=== PATIENT | female | born 1965 | race Asian ===

== ENCOUNTER 2016-12-03 12:38 | Inpatient (IN) | payer OTHER ==
[2016-12-03] MEDS ORDERED: NS 1,000 ML IV ONE (13:25)
[2016-12-03] MEDS ORDERED: VANCOMYCIN HCL/NORMAL SALINE 250 ML IV ONE (13:25)
--- NOTE | 2016-12-03 13:35 | EDPHY ---
H & P Time Seen by Provider: 12/03/16 12:55 HPI/ROS: HPI Left ankle burning and swelling. 51-year-old female by private vehicle with her . They are traveling from [place] visiting their son here. They have been here 1 month. They will travel back to [place] in another month. The patient presents with 5-7 days of worsening swelling, redness, pain, inflammation/irritation with itching to the soft tissues involving her left ankle. She denies any history of trauma. She had a fracture dislocation repair of the left ankle about 20 years ago. She denies fever. She reports she has had scratchiness irritation to the medial aspect of the left ankle on and off over the years. But nothing as bad as this. ROS: Constitutional: No fever, no chills. No weakness. Eyes: No discharge. No changes in vision. ENT: No sore throat. No nasal congestion or rhinorrhea. Respiratory: No cough. No shortness of breath. Cardiac: No chest pain, no palpitations. Gastrointestinal: No abdominal pain, no vomiting, no diarrhea. Genitourinary: No hematuria. No dysuria or increased frequency with urination. Musculoskeletal: No back pain. No neck pain. No myalgias or arthralgias. As above. No other extremity pain. Skin: As above. Neurological: No headache. No focal weakness or altered sensation. Past medical history: Past medical history includes hypertension. Primary care is in [place]. Social history: Here with her . As above. Nonsmoker. No alcohol. Physical Exam: General Appearance: Alert, no distress. This patient is responding to questions appropriately and in full sentences. This patient appears well- hydrated and well-nourished. Eyes: Pupils equal and round no pallor or injection. No lid edema, erythema or injection. Left ankle exam: Significant for venous stasis dermatitis involving the medial soft tissues of the left ankle with skin breakdown and inflammatory changes. There is a significant erythema that spreads proximal to this up to the mid leg mostly involving the medial aspect of the leg. The left ankle and leg are swollen asymmetrically relative to the right ankle and leg. She has good capillary refill in all digits of the left foot. A strong dorsalis pedis pulse is noted. There is no pain involving the joint on axial compression of the ankle or flexion extension of the ankle. The left foot is neurovascularly intact. Neurological: Motor sensory function is grossly intact. Cranial nerves are normal. Gait is normal. Skin: Warm and dry, no rashes. Musculoskeletal: Neck is supple and nontender. Extremities are symmetrical. All joints range without pain or impingement. Psychiatric: No agitation. No depression. Database: EKG: Imaging: Left ankle x-ray series: No evidence of acute fracture, subluxation, dislocation. No evidence of osteomyelitis. Significant soft tissue swelling involving the medial aspect of the joint. Osteoarthritis noted. Interpreted by me. Left lower extremity Doppler ultrasound: No DVT. Reactive nodes in groin noted. Results were discussed with staff radiologist Dr. Qamar Nunez. Procedures: Emergency department course: IV placed. She was placed on a monitor. Blood cultures were drawn. She was started on IV normal saline with 500 cc to 1 L to be given over the next 1-2 hours. She will be started on IV vancomycin in the emergency department for likely cellulitis of the left ankle soft tissues with associated venous stasis dermatitis. 2:30 p.m., patient re-evaluated. Resting comfortably at this time. Results of x-rays, ultrasound and blood work discussed with the patient and her . Plan for admission for IV antibiotics and further management by the hospitalist service discussed. Blood sugar noted to be 200. She denies prior history of diabetes. They both endorse plan for admission. 2:35 p.m., spoke with on-call hospitalist. Patient accepted for admission to Dr. Yunior Diaz. The patient's remaining emergency department course under my care uneventful. Patient admitted in stable condition. Differential Diagnosis: The differential diagnosis on this patient includes but is not limited to cellulitis of the left ankle, venous stasis dermatitis of the left ankle. Fracture, subluxation, dislocation, osteomyelitis, gouty arthritis, septic arthritis, pseudogout unlikely. This represents a partial list of diagnoses considered. These considerations are based on history, physical exam, past history, reassessment and diagnostic testing. Smoking Status: Never smoked Constitutional: Initial Vital Signs Temperature (C) 37.1 C 12/03/16 12:43 Heart Rate 74 12/03/16 12:43 Respiratory Rate 18 12/03/16 12:43 Blood Pressure 154/77 H 12/03/16 12:43 O2 Sat (%) 95 12/03/16 12:43 O2 Delivery Mode Room Air Allergies/Adverse Reactions: No Known Allergies Allergy (Unverified 12/03/16 12:45) Home Medications: Medication Instructions Recorded Atenolol 12/03/16 Telmisartan 12/03/16 Medical Decision Making - Diagnostics Imaging Results: Imaging Impressions Ankle X-Ray 12/03/16 12:57 Impression: Addison soft tissue swelling. Extremity Venous Study 12/03/16 13:27 Impression: 1. No deep venous thrombosis in the left lower extremity. 2. Reactive nodes left inguinal region. Findings discussed with Jeanette Bowen MD at 14:22 hour, 12/03/2016. - Data Points Laboratory Results: Laboratory Results 12/03/16 13:44 12/03/16 13:44 12/03/16 12/03/16 13:44 13:44 WBC 7.37 10^3/uL 10^3/uL (3.80-9.50) RBC 4.42 10^6/uL 10^6/uL (4.18-5.33) Hgb 12.8 g/dL g/dL (12.6-16.3) Hct 38.6 % % (38.0-47.0) MCV 87.3 fL fL (81.5-99.8) MCH 29.0 pg pg (27.9-34.1) MCHC 33.2 g/dL g/dL (32.4-36.7) RDW 13.1 % % (11.5-15.2) Plt Count 232 10^3/uL 10^3/uL (150-400) MPV 11.0 fL fL (8.7-11.7) Neut % (Auto) 67.1 % % (39.3-74.2) Lymph % (Auto) 22.1 % % (15.0-45.0) Crook % (Auto) 6.4 % % (4.5-13.0) Eos % (Auto) 3.4 % % (0.6-7.6) Baso % (Auto) 0.7 % % (0.3-1.7) Nucleat RBC Rel Count 0.0 % % (0.0-0.2) Absolute Neuts (auto) 4.95 10^3/uL 10^3/uL (1.70-6.50) Absolute Lymphs (auto) 1.63 10^3/uL 10^3/uL (1.00-3.00) Absolute Monos (auto) 0.47 10^3/uL 10^3/uL (0.30-0.80) Absolute Eos (auto) 0.25 10^3/uL 10^3/uL (0.03-0.40) Absolute Basos (auto) 0.05 10^3/uL 10^3/uL (0.02-0.10) Absolute Nucleated RBC 0.00 10^3/uL 10^3/uL (0-0.01) Immature Gran % 0.3 % % (0.0-1.1) Immature Gran # 0.02 10^3/uL 10^3/uL (0.00-0.10) ESR Pending Sodium 139 mEq/L mEq/L (134-144) Potassium 4.0 mEq/L mEq/L (3.5-5.2) Chloride 101 mEq/L mEq/L (97-110) Carbon Dioxide 27 mEq/l mEq/l (22-31) Anion Gap 11 mEq/L mEq/L (8-16) BUN 10 mg/dL mg/dL (7-23) Creatinine 0.7 mg/dL mg/dL (0.6-1.0) Estimated GFR > 60 Glucose 200 mg/dL H mg/dL (70-100) Calcium 9.9 mg/dL mg/dL (8.5-10.4) C-Reactive Protein < 5.0 mg/L mg/L (<10.0) Medications Given: Discontinued Medications Sodium Chloride (Ns) 1,000 mls @ 0 mls/hr IV ONCE ONE; Wide Open PRN Reason: Protocol Stop: 12/03/16 13:26 Last Admin: 12/03/16 14:21 Dose: 1,000 mls Vancomycin/Sodium Chloride (Vancomycin 1 Gm (Premix)) 250 mls @ 250 mls/hr IV EDNOW ONE PRN Reason: Protocol Stop: 12/03/16 14:24 Last Admin: 12/03/16 14:20 Dose: 250 mls Departure - Departure Disposition: [facility] Inpatient Acute Clinical Impression: Cellulitis of left ankle, Venous stasis dermatitis left ankle Referrals: NONE *PRIMARY CARE P,. [Primary Care Provider] - As per Instructions
[2016-12-03 13:57] LABS: % IMMATURE GRANULYOCYTES 0.3 % (0.0-1.1); ABSOLUTE IMMATURE GRANULOCYTES 0.02 10^3/uL (0.00-0.10); ADD DIFF? NO; ADD MORPH? NO; ADD SCAN? NO; ATYPICAL LYMPHOCYTE FLAG 10 (0-99); FRAGMENT RBC FLAG 0 (0-99); HEMATOCRIT 38.6 % (38.0-47.0); HEMOGLOBIN 12.8 g/dL (12.6-16.3); LEFT SHIFT FLG 0 (0-99); LIPEMIA HEMOLYSIS FLAG 80 (0-99); MEAN CELL HEMOGLOBIN CONCENTR. 33.2 g/dL (32.4-36.7); MEAN CELL VOLUME 87.3 fL (81.5-99.8); PLATELET CLUMPS FLAG 10 (0-99); PLATELET COUNT 232 10^3/uL (150-400); RED BLOOD CELL COUNT 4.42 10^6/uL (4.18-5.33); RED CELL DISTRIBUTION WIDTH 13.1 % (11.5-15.2)
[2016-12-03 14:18] LABS: ANION GAP 11 mEq/L (8-16); C-REACTIVE PROTEIN < 5.0 mg/L (<10.0); CALCIUM 9.9 mg/dL (8.5-10.4); CARBON DIOXIDE 27 mEq/l (22-31); CHLORIDE 101 mEq/L (97-110); CREATININE 0.7 mg/dL (0.6-1.0); GLOMERULAR FILTRATION RATE > 60; GLUCOSE 200 mg/dL (70-100); SODIUM 139 mEq/L (134-144)
[2016-12-03 14:41] LABS: SEDIMENTATION RATE 30 MM/HR (0-30)
[2016-12-03] MEDS ORDERED: ONDANSETRON DISINTEGRATING 4 MG TAB PO PRN (14:53)
[2016-12-03] MEDS ORDERED: ACETAMINOPHEN 325 MG TAB PO PRN (14:53)
--- NOTE | 2016-12-03 15:28 | GHP ---
[f rep st] HISTORY AND PHYSICAL DATE OF ADMISSION: 12/03/2016 CHIEF COMPLAINT: Left ankle pain. HISTORY OF PRESENT ILLNESS: This is a 51-year-old female with a history of a left ankle fracture and dislocation, who presents with left ankle pain. This started about a week ago, described as burning, but not terribly painful, she is able to move her ankle, it shows that the redn ess has progressed over the past few days. It has also become more swollen. She has not had any fev ers at home. She has a history of a left ankle fracture and dislocation. She has had issues like this in the past . She has used different creams to treat this in the past in [place], which include a mometasone cream , a fluoroquinolone cream, as well as she has taken Misa allergy pills. She says that this is the worst that it has ever been however. She has never had an infection with resistant bacteria. She h as never been told that she has gout or has any other joint inflammation. PAST MEDICAL/SURGICAL HISTORY: 1. Hypertension. 2. Left ankle fracture and dislocation. MEDICATIONS: Please see medication reconciliation. ALLERGIES: No known drug allergies. FAMILY HISTORY: Her parents had hypertension. SOCIAL HISTORY: She lives near [facility], she is visiting family here. She is going to go to [place], [place] in about 1 week. REVIEW OF SYSTEMS: A 10-point review of systems is conducted and is negative except per HPI. PHYSICAL EXAM: VITAL SIGNS: Blood pressure is 154/77, heart rate 74, respiration rate 18, saturatin g 95% on room air, temperature is 37.1. GENERAL: The patient is a very pleasant female, who is rest ing comfortably, in no acute distress. HEENT: Shows her to be normocephalic, atraumatic. CARDIOVAS CULAR: Shows regular rate and rhythm. No murmurs, rubs, or gallops. PULMONARY: Shows Lungs clear to auscultation bilaterally. ABDOMEN: Soft, nontender, nondistended. SKIN: No rash. : Shows n o [place]. NEUROLOGIC: Shows her to be alert and oriented x3. She is moving all extremities. PSYCHI ATRIC: Shows normal mood and affect. EXTREMITIES: Shows her left ankle to have significant erythem a extending to the mid medial calf. It is warm. It is not terribly painful, but it is quite [place] us. She has good range of motion in her ankle. She has what appears to be chronic venous stasis adri nges in that ankle as well. She has no inguinal lymphadenopathy. She does have in her bilateral med ial thighs, have a follicular type rash. LABS: White count is normal. ESR is 30, glucose is 200, CRP is 50, creatinine is 0.7. DATA: 1. I discussed this with Dr. Bowen. We will admit to med/surg. 2. I reviewed her extremity venous study. This shows no deep vein thrombosis, it does show some lana ctive lymph nodes in the left inguinal region. 3. Ankle x-ray shows bland soft tissue swelling. IMPRESSION AND PLAN: A 51-year-old female with left ankle inflammation. 1. Left ankle inflammation: Agree, this is likely cellulitis. I do consider gout as well. It is o dd that her inflammatory markers are normal, and she has a normal white count. I will send procalcit onin, as well as uric acid. I think empirically treating now for cellulitis is appropriate. She smith s not have any risk factors for MRSA, I will change her antibiotics to Ancef. 2. Hypertension: Continue her antihypertensives. 3. Hyperglycemia: She should follow up with her primary care physician in [place]. /[id number]/MODL
[2016-12-03 16:25] LABS: URIC ACID 7.6 mg/dL (2.5-6.8)
[2016-12-03] MEDS: MOMETASONE FUROATE 15 GM CRTUBE TP SCH (16:55)
[2016-12-03 18:21] LABS: PROCALCITONIN 0.03 ng/mL (0.02-0.10)
[2016-12-03] MEDS: CALCIUM CARB W/VIT D 500 MG TAB PO SCH (20:23)
[2016-12-03] MEDS: oxyCODONE IR 5 MG TAB PO PRN (20:23)
[2016-12-03] MEDS: ATENOLOL 25 MG TAB PO SCH (20:23)
[2016-12-04] MEDS: oxyCODONE IR 5 MG TAB PO PRN (00:06)
[2016-12-04 05:00] LABS: % IMMATURE GRANULYOCYTES 0.3 % (0.0-1.1); ABSOLUTE IMMATURE GRANULOCYTES 0.02 10^3/uL (0.00-0.10); ADD DIFF? NO; ADD MORPH? NO; ADD SCAN? NO; ATYPICAL LYMPHOCYTE FLAG 10 (0-99); FRAGMENT RBC FLAG 0 (0-99); HEMATOCRIT 37.1 % (38.0-47.0); HEMOGLOBIN 12.1 g/dL (12.6-16.3); LEFT SHIFT FLG 0 (0-99); LIPEMIA HEMOLYSIS FLAG 80 (0-99); MEAN CELL HEMOGLOBIN 28.9 pg (27.9-34.1); MEAN CELL HEMOGLOBIN CONCENTR. 32.6 g/dL (32.4-36.7); MEAN CELL VOLUME 88.5 fL (81.5-99.8); MEAN PLATELET VOLUME 11.8 fL (8.7-11.7); PLATELET CLUMPS FLAG 0 (0-99); PLATELET COUNT 227 10^3/uL (150-400); RED BLOOD CELL COUNT 4.19 10^6/uL (4.18-5.33); RED CELL DISTRIBUTION WIDTH 13.2 % (11.5-15.2)
[2016-12-04 05:14] LABS: ANION GAP 12 mEq/L (8-16); CALCIUM 9.7 mg/dL (8.5-10.4); CARBON DIOXIDE 25 mEq/l (22-31); CHLORIDE 102 mEq/L (97-110); CREATININE 0.6 mg/dL (0.6-1.0); GLOMERULAR FILTRATION RATE > 60; GLUCOSE 137 mg/dL (70-100); POTASSIUM 4.1 mEq/L (3.5-5.2); SODIUM 139 mEq/L (134-144)
[2016-12-04] MEDS ORDERED: TELMISARTAN PO SCH (09:00)
[2016-12-04] MEDS ORDERED: HYDROCHLOROTHIAZID PO SCH (09:00)
[2016-12-04] MEDS: CALCIUM CARB W/VIT D 500 MG TAB PO SCH ×2 (09:06→21:01)
[2016-12-04] MEDS: ATENOLOL 25 MG TAB PO SCH ×2 (09:06→21:00)
[2016-12-04] MEDS: MOMETASONE FUROATE 15 GM CRTUBE TP SCH (09:09)
[2016-12-04] MEDS ORDERED: TELMISARTAN 40 MG TAB PO SCH (11:00)
[2016-12-04] MEDS: TELMISARTAN 40 MG TAB PO SCH (12:22)
[2016-12-04] MEDS: HYDROCHLOROTHIAZIDE 12.5 MG CAP PO SCH (12:22)
--- NOTE | 2016-12-04 13:36 | HOSPPROG ---
Hospitalist Progress Note Assessment/Plan: 51y old female with ankle reddness. First encounter, chart reviewed. #L ankle cellulitis cont IV abx over night wound care transition to PO abx when ready #HTN stable #Hyperglycemia acute #Dispo change to inpt. requires cont IV abx wound care Subjective: Up eating breakfast. Feeling a bit better. No pain. Objective: Vital Signs Temp Pulse Resp BP Pulse Ox 36.6 C 64 18 133/64 H 97 12/04/16 11:07 12/04/16 11:07 12/04/16 11:07 12/04/16 11:07 12/04/16 11:07 Laboratory Results 12/04/16 04:20 12/04/16 04:20 12/03/16 12/04/16 12/05/16 05:59 05:59 05:59 Intake Total 1600 Balance 1600 - Physical Exam Constitutional: no apparent distress, appears nourished, not in pain Eyes: PERRL, anicteric sclera, EOMI Ears, Nose, Mouth, Throat: moist mucous membranes, hearing normal, ears appear normal Cardiovascular: regular rate and rhythym, No JVD, No edema Respiratory: no respiratory distress, no rales or rhonchi, reduced air movement Gastrointestinal: normoactive bowel sounds, No tenderness, No ascites Skin: warm, erythema, No induration Musculoskeletal: full muscle strength, no joint effusions, generalized weakness Neurologic: AAOx3 Psychiatric: interacting appropriately, not anxious, not encephalopathic, thought process linear ICD10 Worksheet Patient Problems: Problems Problem Status Onset Cellulitis of left ankle Acute
[2016-12-04] MEDS ORDERED: diphenhydrAMINE 25 MG CAP PO ONE (22:15)
[2016-12-05 08:43] VITALS: BP 127/81; PULSE 58; RESP 14; TEMP 97.7; O2SAT 98
[2016-12-05] MEDS: TELMISARTAN 40 MG TAB PO SCH (08:56)
[2016-12-05] MEDS: HYDROCHLOROTHIAZIDE 12.5 MG CAP PO SCH (08:56)
[2016-12-05] MEDS: ATENOLOL 25 MG TAB PO SCH (08:56)
[2016-12-05] MEDS: CALCIUM CARB W/VIT D 500 MG TAB PO SCH (08:56)
[2016-12-05] MEDS: MOMETASONE FUROATE 15 GM CRTUBE TP SCH (08:57)
--- NOTE | 2016-12-05 12:14 | WOCRNPDOC ---
WOCRN Advanced Assessment Note - Skin Integrity Problem, Advanced Assess Left Ankle Rash (raised) Dressing Type: Open to Air Exudate Amount: None Integumentary Issue Intervention: Lotion/Cream Applied (Atractain Cream) Katherine Wound Tissue: Erythema, Hemosiderin Staining, Xerotic (with flaking epidermis) Site Odor: None Site Measurement - Head-to-Toe Length X Width X Depth (cm): 22 cm ankle circumference Extremity Temperature: Cool Lymphedema Present: Yes Peripheral Edema Location & Description: ankle, trace to +1 non-pitting, positional Skin Integrity Problem Comment: Large patches of flaking epidermis surrounding ankle area, exposing intact, irritated-appearing dermis. Flat, reddened blotches , in the context of hemosiderin-stained dermis, extend towards calf. Patient reports that she has been experiencing edema "just in the left leg," and endorses tenderness currently. Varicose veins are visible along her posterior lower extremity. She was able to comfortably tolerate gentle palpation, bathing of site with bath wipe, application of Atractain Cream, and placement of tubigrip size C for temporary support. Discussed care after DC, including use of support stockings, elevation when sitting or in bed, and skin care to promote tissue elasticity and integrity. was present, supportive and attentive to instructions. Coordinated with Dr. Mcclelland to provide Rx for support stockings.
--- NOTE | 2016-12-05 16:58 | PDDCSUM ---
Discharge Summary Discharge Summary: DISCHARGE SUMMARY FOLLOW-UP ITEMS: Outpatient [facility] reass[facility] at [facility] DATE OF ADMISSION: 12/03/2016 DATE OF DISCHARGE: 12/05/2016 DISCHARGE DIAGNOSES: 1. Acute left ankle cellulitis 2. Stasis dermatitis 3. Chronic hypertension CONSULTATIONS: Wound care PROCEDURES / IMAGING: Lower extremity ultrasound demonstrating no DVT CHIEF COMPLAINT: Acute lower extremity swelling and pain SUBJECTIVE: Patient feels like the swelling and erythema has improved PHYSICAL EXAM ON DISCHARGE: Systolic blood pressure is 120, heart rate 60, afebrile overnight, satting well on room air, left ankle is more edematous than right ankle, with some scaling along the medial aspect, healing ulcerations, erythema receding from the demarcations, no focal tenderness LABS ON DISCHARGE: White blood cell count 5900, hemoglobin 12.1 creatinine 0.6 HOSPITAL COURSE BY PROBLEM: 1. Acute cellulitis. Left ankle, most likely precipitant is stasis dermatitis with interruption in the skin barrier, without any recent exposures, received IV Ancef and clinically improved. Given patient's significant improvement and recession of the erythema from the margins, we are placing her on 7 subsequent days of oral Keflex, to be followed up at the [facility]. 2. Stasis dermatitis. The patient does have evidence of chronic venous stasis and stasis dermatitis, with some flaking and ulcerations along the medial aspect of the left lower extremity. She was seen in consultation by Wound Care , and they recommended graded compression stockings, which were ordered at time of discharge. DISCHARGE MEDICATIONS: Please see official discharge medication reconciliation sheet in chart , Keflex 500 mg 4 times daily x7 subsequent days, continue other home medications. DISCHARGE INSTRUCTIONS: Please follow up with infectious disease within 1 week. TIME SPENT: Greater than 30 minutes were spent on direct patient care, as well as discharge planning and preparation.
--- NOTE | 2016-12-05 17:07 | ASDISCHSUM ---
Discharge Information Plan Status:Home with No Needs Medically Cleared to Leave: Discharge Date:12/05/2016 12:31 PM CM D/C Disposition:Home, Routine, Self-Care ADT D/C Disposition:Home, Routine, Self-Care Projected Discharge Date:12/05/2016 12:00 AM Transportation at D/C:Family Discharge Delay Reason: Follow-Up Date:12/05/2016 12:00 AM Discharge Slot: Final Diagnosis:L ankle cellulitis Placement Information Patient Contact Information Contact Name:GIANNA Relationship:Son Address:[address] [place] [address] Work Phone: [place] Alternate Phone: [facility]/Zip Code:[place] [address] Email: Financial Information Financial Class:HMO and PPO Plans Primary Plan Desc:HCCMIS Primary Plan Number:[id number] Secondary Plan Desc: Secondary Plan Number: Assessment Information [facility] CM Progress Note CM Note CM Note Notes: Pt was admitted with L ankle cellulitis. Currently receiving wound care and IV ABX. The plan is to transition to po ABX. Discharging home today w/no CM needs. Date Signed: 12/05/2016 01:43 PM Electronically Signed By:Linsey Pardo Intervention Information
== END 2016-12-05 12:31 | disposition home or self-care (01) | DRG 603 ==
LOC: INTOOBSV 14:34 → F3E 16:04 → OBSVTOIN 12-04 13:40
PROVIDERS: ADMIT Student in an Organized Health Care Education/Training Program; ATTEND Student in an Organized Health Care Education/Training Program
DX: L03.116 Cellulitis of left lower limb (principal); I87.2 Venous insufficiency (chronic) (peripheral); I10 Essential (primary) hypertension
CPT/HCPCS: 96365; G0378; J0690; J3370